=== PATIENT | female | born 1970 ===

== ENCOUNTER 2018-03-21 09:34 | Emergency (ER) | payer SELFPAY ==
[2018-03-21] MEDS ORDERED: Ondansetron ODT TAB* 4 MG PO ONE (11:34)
[2018-03-21] MEDS ORDERED: Ibuprofen TAB* 600 MG PO ONE (11:34)
--- NOTE | 2018-03-21 11:39 | UC ---
Back Pain HPI - HPI Summary HPI Summary: Last night patient slipped in the shower and fell striking her left posterior shoulder, neck and mid back on the tub. No head injury or LOC. No numbness or tingling in her extremities. Is complaining of pain in the back of her neck and mid back. - History of Current Complaint Chief Complaint: UCBackPain Stated Complaint: BACK PAIN Time Seen by Provider: 03/21/18 10:51 Hx Obtained From: Patient Onset/Duration: Sudden Onset, Lasting Hours, Still Present Timing: Constant Severity Initially: Moderate Severity Currently: Moderate Pain Intensity: 8 Pain Scale Used: 0-10 Numeric Back Pain: Is Discrete @ - NECK AND MID BACK Character: Sharp Aggravating Factor(s): Movement Alleviating Factor(s): Rest Associated Signs And Symptoms: Negative: Swelling, Redness, Bruising, Weakness, Numbness, Tingling - Allergies/Home Medications Allergies/Adverse Reactions: Allergies Allergy/AdvReac Type Severity Reaction Status Date / Time Sulfa (Sulfonamide Allergy Hives Verified 03/21/18 10:09 Antibiotics) Home Medications: Home Medications Acetaminophen 325 mg PO ONCE PRN 03/21/18 [History Confirmed 03/21/18] PMH/Surg Hx/FS Hx/Imm Hx Previously Healthy: Yes - Surgical History Surgical History: None - Family History Known Family History: Negative: Hypertension - Social History Alcohol Use: None Substance Use Type: None Smoking Status (MU): Never Smoked Tobacco Review of Systems Constitutional: Negative Skin: Negative Respiratory: Negative Cardiovascular: Negative Gastrointestinal: Negative Musculoskeletal: Arthralgia, Decreased ROM, Myalgia All Other Systems Reviewed And Are Negative: Yes Physical Exam Triage Information Reviewed: Yes Appearance: Well-Appearing, No Pain Distress, Well-Nourished Vital Signs: Initial Vital Signs Temp 97.6 F 03/21/18 10:02 Pulse 70 03/21/18 10:02 Resp 18 03/21/18 10:02 BP 103/67 03/21/18 10:02 Pulse Ox 100 03/21/18 10:02 Vital Signs Reviewed: Yes Eyes: Positive: Conjunctiva Clear ENT: Positive: Hearing grossly normal Neck: Positive: Supple, No Lymphadenopathy, Other: - TTP POSTERIOR NECK/C-SPINE AND LEFT TRAP Respiratory: Positive: No respiratory distress, No accessory muscle use Cardiovascular: Positive: Pulses Normal Abdomen Description: Positive: Soft Musculoskeletal: Positive: ROM Intact, No Edema, Other: - TTP LEFT TRAPEZIUS MUSCLE AND OVER C-SPINE AND T-SPINE. Neurological: Positive: Alert Psychological: Positive: Age Appropriate Behavior Skin: Negative: rashes Diagnostics - Radiology C-SPINE XRAY Xray Interpretation: Positive (See Comments) - DEGENERATIVE CHANGES Radiology Interpretation Completed By: Radiologist T-SPINE XRAY Xray Interpretation: No Acute Changes Radiology Interpretation Completed By: Radiologist Back Pain Course/Dx - Course Course Of Treatment: XRAYS OF C-SPINE SHOW Straightening relative to normal cervical lordosis without facet subluxation at any level. Degenerative spondylosis at C5-C6 and C6-C7. T-SPINE XRAYS UNREMARKABLE. LIKELY MUSCULOSKELETAL STRAIN. FLEXERIL, NSAIDS, REST, STRETCH. F/U IF NEEDED. - Differential Dx/Diagnosis Provider Diagnoses: 1. ACUTE TRAPEZIUS MUSCLE STRAIN. 2. ACUTE THORACIC BACK PAIN Discharge - Sign-Out/Discharge Documenting (check all that apply): Patient Departure All imaging exams completed and their final reports reviewed: Yes - Discharge Plan Condition: Stable Disposition: HOME Prescriptions: Cyclobenzaprine TAB* [Flexeril TAB*] 10 mg PO BID PRN #30 tab PRN Reason: Pain Patient Education Materials: Muscle Strain (ED), Thoracic Pain (ED) Referrals: No Primary Care Phys,NOPCP [Primary Care Provider] - Additional Instructions: X-RAYS OF HER CERVICAL SPINE SHOWED SOME DEGENERATIVE CHANGE. X-RAYS OF THORACIC SPINE UNREMARKABLE. LIKELY MUSCULAR STRAIN FROM ACUTE INJURY. YOUR SYMPTOMS SHOULD IMPROVE SIGNIFICANTLY OVER THE NEXT 1-2 WEEKS. REST. OTC IBUPROFEN OR ALEVE NEEDED FOR DISCOMFORT. TAKE MUSCLE RELAXER BEFORE BED. BE SURE TO GO THROUGH SLOW RANGE OF MOTION AND STRETCHING EXERCISES DAILY YOU ARE ABLE TO PREVENT STIFFENING UP AND MAKING THE DISCOMFORT WORSE. IBUPROFEN MAX DOSE: 600MG (3 TABS) EVERY 6 HRS OR 800MG (4 TABS) EVERY 8 HRS OR NAPROXEN MAX DOSE: 440MG (2 TABS) EVERY 12 HRS TYLENOL MAX DOSE: 1000MG (2 EXTRA STRENGTH TABS) EVERY 8 HRS OR 650MG (2 REGULAR TABS) EVERY 6 HRS GO TO THE ED WITHOUT FAIL IF YOU DEVELOP WORSENING PAIN, NUMBNESS/TINGLING IN YOUR EXTREMITIES OR ANY OTHER CONCERNING SYMPTOMS. - Billing Disposition and Condition Condition: STABLE Disposition: Home
--- NOTE | 2018-03-21 12:24 | RAD ---
Indication: LEFT side neck pain post fall last night. Comparison: No relevant prior exams available on the [facility] PACS for comparison. Technique: AP, open-mouth odontoid, lateral, and oblique views cervical spine. Report: Straightening relative to normal cervical lordosis without facet subluxation at any level. Negative for fracture. Mild osteophytosis and moderate disc space narrowing at C5-C6 and mild disc space narrowing at C6-C7. Oblique views are negative for osseous foraminal stenosis. Unremarkable prevertebral soft tissue contours. IMPRESSION: #. Straightening relative to normal cervical lordosis without facet subluxation at any level. #. Negative for fracture. #. Degenerative spondylosis at C5-C6 and C6-C7.
--- NOTE | 2018-03-21 12:25 | RAD ---
Indication: LEFT side pain post fall last night. Comparison: Cervical spine exam of the same date. Technique: AP and lateral views thoracic spine. Report: Negative for thoracic spine fracture or malalignment. Preserved disc spaces. Unremarkable paraspinal soft tissue contours. IMPRESSION: #. Negative radiographic exam of the thoracic spine.
[2018-03-21 12:54] VITALS: BP 97/64
== END 2018-03-21 12:52 | disposition home or self-care (01) ==
LOC: UCEAST 09:34
DX: S43.492A Other sprain of left shoulder joint, initial encounter (principal); M54.6 Pain in thoracic spine; Z88.2 Allergy status to sulfonamides; W18.2XXA Fall in (into) shower or empty bathtub, initial encounter; Y92.9 Unspecified place or not applicable
CPT/HCPCS: 72050; 72070; 99202; A9270-GY; G0463